=== PATIENT | male | born 1985 | race Two or more races ===

== ENCOUNTER 2022-11-17 17:32 | Emergency (ER) | payer SELFPAY ==
[2022-11-17 18:19] LABS: BASOPHILS ABSOLUTE AUTO 0.05 K/mm3 (0.01-0.08); BASOPHILS PERCENT AUTO 0.4 % (0.1-1.2); EOSINOPHILS ABSOLUTE AUTO 0.22 K/mm3 (0.04-0.54); HEMATOCRIT 46.1 % (40.1-51.0); HEMOGLOBIN 15.4 gm/dl (13.7-17.5); IMMATURE GRAN ABSOLUTE AUTO 0.02 K/mm3 (0.00-0.10); IMMATURE GRAN PERCENT AUTO 0.2 % (<=1.0); LYMPHOCYTES ABSOLUTE AUTO 1.91 K/mm3 (1.32-3.57); MEAN CORPUSCULAR HEMOGLOBIN 28.9 pg (25.7-32.2); MEAN CORPUSCULAR HGB CONC 33.4 g/dl (32.2-35.5); MEAN CORPUSCULAR VOLUME 86.7 fl (79.0-92.2); MEAN PLATELET VOLUME 10.6 fl (9.4-12.3); MONOCYTES ABSOLUTE AUTO 1.17 K/mm3 (0.30-0.82); MONOCYTES PERCENT AUTO 10.4 % (5.3-12.2); NEUTROPHILS ABSOLUTE AUTO 7.87 K/mm3 (1.78-5.38); PLATELET COUNT,PLT 346 K/mm3 (163-337); RED BLOOD CELL COUNT 5.32 M/mm3 (4.63-6.08); WHITE BLOOD CELL COUNT,WBC 11.24 K/mm3 (4.23-9.07)
[2022-11-17 18:51] LABS: ANION GAP 12.7 (5-15); BUN/CREATININE RATIO 21.7 (14-18); C-REACTIVE PROTEIN 1.2 mg/dL (<1.0); CALCIUM 9.3 mg/dL (8.5-10.1); CREATININE 1.2 mg/dL (0.7-1.3); EST CRCL DRUG DOSING (CG) 92.51 mL/min; POTASSIUM,K 3.7 mEq/L (3.5-5.1)
[2022-11-17] MEDS ORDERED: Ketorolac 30 MG/ML SDV IM ONE (19:14)
== END 2022-11-17 19:30 | disposition home or self-care (01) ==
LOC: JD.ED 17:32
DX: M70.22 Olecranon bursitis, left elbow (principal); I10 Essential (primary) hypertension; Z72.0 Tobacco use
CPT/HCPCS: 36415; 73080; 80048; 85025; 86140; 96372; 99283; J1885